=== PATIENT | male | born 2000 | race Caucasian/White ===

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

== ENCOUNTER 2019-02-19 20:59 | Emergency (ER) | payer SELFPAY ==
[~2019-02-19] VITALS: Ht 177.8 cm; Wt 62.3 kg
[2019-02-19 21:02] VITALS: TEMP 98.4
[2019-02-19 21:32] LABS: BASO % 0.3 % (0.0-2.0); EOS # 0.1 (0.0-0.7); EOS % 1.3 % (0-4.0); GRAN # 6.2 (1.4-6.5); GRAN % 72.3 % (42.2-75.2); HEMATOCRIT 39.6 % (36.0-47.0); HEMOGLOBIN 13.4 g/dl (12.5-16.1); LYMPH # 1.6 (1.2-3.4); LYMPH % 18.7 % (20.0-51.0); MEAN CELL VOLUME 88 fl (80.0-95.0); MEAN CORPUSCULAR HEMOGLOBIN 30 pg (26.0-32.0); MEAN CORPUSCULAR HGB CONC 34 g/dl (33.0-37.0); MEAN PLATELET VOLUME 10.3 fl (7.4-10.4); MONO # 0.6 (0.1-0.6); MONO % 7.1 % (1.7-9.3); PLATELET COUNT 255 K/mm3 (130-400); RED BLOOD COUNT 4.48 M/mm3 (4.20-5.60); REDCELL DISTRIBUTION WIDTH-CV 12.9 % (11.5-14.5)
[2019-02-19 21:42] LABS: ALANINE AMINOTRANSFERASE 29 U/L (21-72); ALBUMIN 4.4 gm/dL (3.5-5.0); ALKALINE PHOSPHATASE 112 U/L (50-136); ANION GAP 13 mmol/L (7-16); AST,SGOT 33 U/L (15-37); BILIRUBIN,TOTAL 1.5 mg/dL (0.0-1.0); BLOOD UREA NITROGEN 21 mg/dL (9-20); CALCIUM 9.4 mg/dL (8.4-10.2); CARBON DIOXIDE 22 mmol/L (22-30); CHLORIDE 102 mmol/L (98-107); CREATINE KINASE 127 U/L (55-170); CREATININE, serum 1.04 (0.66-1.25); GLUCOSE 118 mg/dL (74-106); POTASSIUM 3.7 mmol/L (3.4-5.0); SODIUM 138 mmol/L (137-145); TOTAL PROTEIN 7.9 gm/dL (6.4-8.2)
[2019-02-19 21:47] LABS: ACETAMINOPHEN < 10 ug/mL (10-30); ALCOHOL(ethanol),MEDICAL < 10 mg/dL; SALICYLATE < 1.0 mg/dL
[2019-02-19 21:54] LABS: TROPONIN-I < 0.012 ng/mL (0.000-0.035)
[2019-02-19 21:58] LABS: PROLACTIN 72.3 ng/mL (3.7-17.9)
[2019-02-19 22:22] LABS: TRICYCLIC ANTIDEPRESS URINE POSITIVE
[2019-02-20 15:42] VITALS: BP 112/64; PULSE 87
== END 2019-02-20 15:45 ==
LOC: COL.ER 20:59
PROVIDERS: Emergency Medicine
DX: S09.90XA Unspecified injury of head, initial encounter (principal); T40.2X2A Poisoning by other opioids, intentional self-harm, initial encounter; F17.210 Nicotine dependence, cigarettes, uncomplicated; F12.90 Cannabis use, unspecified, uncomplicated; F90.9 Attention-deficit hyperactivity disorder, unspecified type; Z90.49 Acquired absence of other specified parts of digestive tract
CPT/HCPCS: J7030